=== PATIENT | female | born 2000 | race Caucasian/White ===

== ENCOUNTER 2022-10-28 17:04 | Emergency (ER) | payer SELFPAY ==
[~2022-10-28] VITALS: Ht 157.5 cm; Wt 91.0 kg
[2022-10-28] MEDS ORDERED: KETOROLAC 30MG/ML VIAL IM ONE (19:00)
[2022-10-28 19:35] LABS: CLARITY URINE CLEAR (CLEAR); COLOR URINE YELLOW (YELLOW); KETONES URINE NEGATIVE (NEGATIVE); LEUKOCYTE ESTERASE URINE NEGATIVE (NEGATIVE); NITRITE URINE NEGATIVE (NEGATIVE); OCCULT BLOOD URINE TRACE (NEGATIVE); PROTEIN URINE NEGATIVE (NEGATIVE); SPECIFIC GRAVITY URINE 1.015 (1.005-1.030); UROBILINOGEN URINE 0.2 E.U./dL (0.2-1.0)
[2022-10-28] MEDS ORDERED: SODIUM CHLORIDE 0.9% 1,000 ML IV ONE (19:45)
[2022-10-28] MEDS ORDERED: CEFTRIAXONE 1GM PREMIX 50 ML IV ONE (19:45)
[2022-10-28 20:23] LABS: BASOPHILS % 0.1 % (0.0-2.0); EOSINOPHILS % 0.2 % (0.0-5.0); HEMATOCRIT. 41.4 % (36.0-48.0); HEMOGLOBIN. 13.7 g/dL (12.0-16.0); LYMPHOCYTES % 9.2 % (20.0-50.0); MEAN CORPUSCULAR HEMOGLOBIN 28.9 pg (28.0-32.0); MEAN CORPUSCULAR VOLUME 87.2 fL (81.0-99.0); MEAN PLATELET VOLUME 7.8 fl (7.4-10.4); MONOCYTES % 5.5 % (2.0-8.0); PLATELET 311 x1000/uL (130-400); RED BLOOD CELL COUNT 4.75 mill/uL (4.2-5.4); RED CELL DISTRIBUTION WIDTH 13.1 % (11.6-14.6)
[2022-10-28 20:45] LABS: CHLORIDE 104 mEq/L (98-107)
[2022-10-28 22:45] VITALS: BP 148/90
[2022-10-28] MEDS ORDERED: OXYCODONE HCL/ACETAMINOPHEN 5/325MG TABLET PO ONE (22:45)
[2022-10-29] MEDS ORDERED: OXYC-100 PO (01:40)
[2022-10-29] MEDS ORDERED: METH-653 PO (01:40)
== END 2022-10-29 02:05 | disposition home or self-care (01) ==
LOC: ER 17:04
DX: M54.50 Low back pain, unspecified (principal); R05.9 Cough, unspecified
CPT/HCPCS: 36415; 72131; 80053; 81003; 81025; 83605; 85025; 87040; 96365; 96366; 96372; 99285; J0696; J1885; J7030; Z7610